=== PATIENT | female | born 1950 | race Caucasian/White ===

== ENCOUNTER 2024-03-20 09:53 | Inpatient (IN) | payer OTHER ==
[2024-03-20 11:36] LABS: BASO % 0.6 % (0-2.0); EOS % 1.4 % (0-4.5); HEMATOCRIT 38.7 % (32.4-45.2); LYMPH % 23.1 % (8-40); MCH 27.6 pg (25.7-33.7); MCHC 33.7 g/dl (32.0-36.0); MEAN CELL VOLUME 81.8 fl (80-96); MEAN PLT VOLUME 8.9 fl (7.5-11.1); MONO % 7.3 % (3.8-10.2); NEUT % 67.6 % (42.8-82.8); PLATELET COUNT 300 10^3/uL (134-434); RBC 4.73 M/mm3 (3.60-5.2); RDW 14.6 % (11.6-15.6); WHITE BLOOD COUNT 9.2 K/mm3 (4.0-10.0)
[2024-03-20 11:42] LABS: INR 1.14 (0.83-1.09); PROTHROMBIN TIME (PATIENT) 12.8 SEC (9.7-13.0)
[2024-03-20 11:45] LABS: ACTIVATED PTT 33.4 SECONDS (25.2-36.5)
[2024-03-20 12:00] LABS: POTASSIUM 4.3 mmol/L (3.5-5.1)
[2024-03-20 12:04] LABS: ALBUMIN 3.5 g/dl (3.4-5.0); BLOOD UREA NITROGEN 10.3 mg/dL (7-18)
[2024-03-20 12:07] LABS: CREATININE 0.8 mg/dL (0.55-1.3); PHOSPHOROUS 2.6 mg/dL (2.5-4.9)
[2024-03-20 12:08] LABS: BILIRUBIN,TOTAL 0.2 mg/dL (0.2-1); TOT PROT 7.2 g/dl (6.4-8.2)
[2024-03-20] MEDS ORDERED: KETOROLAC TROMETHAMINE 15 MG/ML VIAL IVPUSH PRN (12:23)
[2024-03-20] MEDS: CLINDAMYCIN 600MG PREMIX IVPB 600 MG/50 ML BAG IVPB ONE (12:25)
[2024-03-20] MEDS ORDERED: ACETAMINOPHEN INJECTION 100 ML IVPB ONE (12:28)
[2024-03-20] MEDS: ACETAMINOPHEN 1000 MG/100 ML BAG IVPB ONE (12:55)
[2024-03-20] MEDS ORDERED: LIDOCAINE HCL 1%, 10 MG/ML (20ML VIAL) ONE (14:50)
[2024-03-20] MEDS ORDERED: BUPIVACAINE HCL/PF 0.5% (5MG/ML) 10 ML VIAL ONE (14:51)
[2024-03-20] MEDS ORDERED: ONDANSETRON 4 MG/2 ML VIAL IVPUSH PRN ×2 (15:51→16:55)
[2024-03-20] MEDS ORDERED: FENTANYL CITRATE/PF 50 MCG/ML VIAL ONE (16:38)
[2024-03-20] MEDS ORDERED: KETOROLAC TROMETHAMINE 30 MG/1 ML VIAL ONE (16:58)
[2024-03-20] MEDS: KETOROLAC TROMETHAMINE 15 MG/ML VIAL IVPUSH PRN (17:03)
[2024-03-20] MEDS: LACTATED RINGERS SOLUTION 1,000 ML IV SCH ×2 (17:40→18:08)
[2024-03-20] MEDS ORDERED: CLINDAMYCIN 600MG PREMIX IVPB 600 MG/50 ML BAG IVPB SCH (18:00)
[2024-03-20] MEDS: CLINDAMYCIN 600MG PREMIX IVPB 600 MG/50 ML BAG IVPB SCH (18:08)
[2024-03-20 18:11] VITALS: BMI 31.6
[2024-03-20] MEDS: ACETAMINOPHEN 325 MG TABLET (FP) PO PRN (20:59)
[2024-03-20] MEDS: FAMOTIDINE 40 MG TABLET PO SCH (21:19)
[2024-03-20] MEDS: ATORVASTATIN CA 40 MG TABLET (FP) PO SCH (21:19)
[2024-03-20] MEDS ORDERED: ATORVASTATIN CA 40 MG TABLET (FP) PO SCH (22:00)
[2024-03-21 08:38] LABS: HEMATOCRIT 35.6 % (32.4-45.2); HEMOGLOBIN 12.1 GM/dL (10.7-15.3); MCH 27.8 pg (25.7-33.7); MEAN CELL VOLUME 81.9 fl (80-96); MEAN PLT VOLUME 9.2 fl (7.5-11.1); PLATELET COUNT 271 10^3/uL (134-434); RBC 4.35 M/mm3 (3.60-5.2); WHITE BLOOD COUNT 7.7 K/mm3 (4.0-10.0)
[2024-03-21 08:40] LABS: POTASSIUM 4.5 mmol/L (3.5-5.1)
[2024-03-21 08:44] LABS: CALCIUM 9.3 mg/dL (8.5-10.1)
[2024-03-21 08:45] LABS: BLOOD UREA NITROGEN 13.4 mg/dL (7-18)
[2024-03-21 08:48] LABS: CREATININE 0.7 mg/dL (0.55-1.3)
[2024-03-21] MEDS: ENALAPRIL MALEATE 10 MG TABLET PO SCH (09:49)
[2024-03-21] MEDS: LACTOBACILLUS ACIDOPHILUS 1 TABLET PO SCH (09:49)
[2024-03-21] MEDS ORDERED: LACTOBACILLUS ACIDOPHILUS 1 TABLET PO SCH (10:00)
[2024-03-21] MEDS ORDERED: ENALAPRIL MALEATE 10 MG TABLET PO SCH (10:00)
[2024-03-21] MEDS ORDERED: FAMOTIDINE 40 MG TABLET PO SCH ×2 (10:00)
[2024-03-21 18:17] VITALS: RESP 18
[2024-03-21] MEDS: ACETAMINOPHEN 325 MG TABLET (FP) PO PRN (23:33)
[2024-03-22 03:31] VITALS: TEMP 97.9
[2024-03-22 07:01] VITALS: BP 117/69; PULSE 77
[2024-03-22] MEDS: FAMOTIDINE 40 MG TABLET PO SCH (10:35)
== END 2024-03-22 14:55 | disposition home or self-care (01) | DRG 572 ==
LOC: JER 09:53 → JERBED 11:26 → J5S 13:08 → OBSVTOIN 15:17
PROVIDERS: ADMIT Internal Medicine
PROC: 0JBF0ZZ Excision of Left Upper Arm Subcutaneous Tissue and Fascia, Open Approach (ICD-10-PCS; 2024-03-20)
PROC: 0J9F0ZZ Drainage of Left Upper Arm Subcutaneous Tissue and Fascia, Open Approach (ICD-10-PCS; principal; 2024-03-20 15:00)
DX: L02.414 Cutaneous abscess of left upper limb (principal); L72.3 Sebaceous cyst; I10 Essential (primary) hypertension; E11.9 Type 2 diabetes mellitus without complications; K21.9 Gastro-esophageal reflux disease without esophagitis; E66.9 Obesity, unspecified; Z68.31 Body mass index [BMI] 31.0-31.9, adult; B96.89 Other specified bacterial agents as the cause of diseases classified elsewhere
CPT/HCPCS: 36415; 80048; 80053; 82962; 83735; 84100; 85025; 85027; 85610; 85730; 86850; 86900; 86901; 87070; 87076; 87205; 88304-TC; 93005; 93010; 94760; 99285-25; G0378; J0131

== ENCOUNTER 2024-07-26 04:02 | Day surgery (SDC) | payer OTHER ==
[2024-07-24 09:39] VITALS: BMI 30.4
[2024-07-26] MEDS ORDERED: PROPOFOL 20 ML ONE (07:23)
[2024-07-26] MEDS ORDERED: MIDAZOLAM HCL 2 MG/2 ML SINGLE DOSE VIAL ONE (07:23)
[2024-07-26] MEDS ORDERED: VASopressin 20 UNITS/ML VIAL IV ONE ×4 (07:40→07:42)
[2024-07-26] MEDS: ceFAZolin SODIUM 1 GM VIAL IVPB ONE (08:55)
[2024-07-26] MEDS ORDERED: DEXAMETHASONE SOD PHOSPHATE 4 MG/1 ML VIAL ONE (09:03)
[2024-07-26] MEDS ORDERED: ONDANSETRON 4 MG/2 ML VIAL ONE (09:03)
[2024-07-26] MEDS ORDERED: ceFAZolin SODIUM 1 GM VIAL ONE (09:03)
[2024-07-26] MEDS ORDERED: ROCURONIUM BROMIDE 50 MG/5 ML SYRINGE ONE (09:22)
[2024-07-26] MEDS ORDERED: ONDANSETRON 4 MG/2 ML VIAL IVPUSH PRN (10:03)
[2024-07-26] MEDS ORDERED: LACTATED RINGERS SOLUTION 1,000 ML IV SCH (10:15)
[2024-07-26] MEDS ORDERED: ACETAMINOPHEN INJECTION 100 ML ONE (10:17)
[2024-07-26] MEDS: DEXTROSE 5%-0.45% SALINE 1,000 ML IV SCH (14:30)
[2024-07-26] MEDS: oxyCODONE HCL 5 MG TABLET PO PRN (18:42)
[2024-07-26] MEDS: CEFAZOLIN 1 GM in DEXTROSE 5%-WATER - 50 ML IVPB SCH (18:42)
[2024-07-26 22:18] VITALS: RESP 18
[2024-07-27 09:13] LABS: BASO % 0.2 % (0-2.0); EOS % 0.4 % (0-4.5); HEMATOCRIT 35.5 % (32.4-45.2); HEMOGLOBIN 11.6 GM/dL (10.7-15.3); LYMPH % 23.1 % (8-40); MCH 26.6 pg (25.7-33.7); MCHC 32.8 g/dl (32.0-36.0); MEAN CELL VOLUME 81.1 fl (80-96); MEAN PLT VOLUME 10.2 fl (7.5-11.1); MONO % 5.9 % (3.8-10.2); NEUT % 70.4 % (42.8-82.8); PLATELET COUNT 249 10^3/uL (134-434); RBC 4.38 M/mm3 (3.60-5.2); RDW 15.1 % (11.6-15.6); WHITE BLOOD COUNT 12.2 K/mm3 (4.0-10.0)
[2024-07-27 09:28] LABS: POTASSIUM 4.2 mmol/L (3.5-5.1)
[2024-07-27 09:30] LABS: BLOOD UREA NITROGEN 8.8 mg/dL (7-18); CALCIUM 9.5 mg/dL (8.5-10.1)
[2024-07-27 09:34] LABS: CREATININE 0.7 mg/dL (0.55-1.3)
[2024-07-27 11:39] VITALS: BP 115/60; PULSE 73; TEMP 98.1
== END 2024-07-27 13:06 | disposition home or self-care (01) ==
LOC: JASUSAT 04:02 → JASU-SURG 04:02 → J7W 14:35 → JASUSAT 07-27 13:06
PROVIDERS: ATTEND Urology
PROC: 0TSD0ZZ Reposition Urethra, Open Approach (ICD-10-PCS; 2024-07-26)
PROC: 0JQC3ZZ Repair Pelvic Region Subcutaneous Tissue and Fascia, Percutaneous Approach (ICD-10-PCS; principal; 2024-07-26 07:30)
DX: N39.3 Stress incontinence (female) (male) (principal); N81.10 Cystocele, unspecified; E11.9 Type 2 diabetes mellitus without complications; I10 Essential (primary) hypertension; K21.9 Gastro-esophageal reflux disease without esophagitis; J45.20 Mild intermittent asthma, uncomplicated
CPT/HCPCS: 36415; 80048; 85025; 88302-TC; 94760; C1771; J0131

== ENCOUNTER 2024-12-22 01:38 | Emergency (ER) | payer OTHER ==
[2024-12-22 01:48] VITALS: BP 148/72; PULSE 92; RESP 20; TEMP 98.4; BMI 32.7
[2024-12-22] MEDS ORDERED: FAMOTIDINE 20 MG/50 ML IVPB 20 MG/50 ML MG IVPB ONE (02:16)
[2024-12-22] MEDS ORDERED: MAG HYDROX/AL HYDROX/SIMETH 30 ML UNIT-DOSE CUP ONE (02:16)
[2024-12-22] MEDS: MAG HYDROX/AL HYDROX/SIMETH 30 ML UNIT-DOSE CUP PO ONE (02:28)
[2024-12-22] MEDS: FAMOTIDINE 20 MG/50 ML IVPB 20 MG/50 ML MG IVPB ONE (02:28)
[2024-12-22 02:48] LABS: BASO % 0.4 % (0-2.0); EOS % 2.6 % (0-4.5); HEMATOCRIT 38.6 % (32.4-45.2); HEMOGLOBIN 12.7 GM/dL (10.7-15.3); LYMPH % 34.7 % (8-40); MCH 26.6 pg (25.7-33.7); MCHC 32.9 g/dl (32.0-36.0); MEAN PLT VOLUME 10.1 fl (7.5-11.1); MONO % 7.3 % (3.8-10.2); PLATELET COUNT 230 10^3/uL (134-434); RBC 4.77 M/mm3 (3.60-5.2); RDW 15.1 % (11.6-15.6); WHITE BLOOD COUNT 7.7 K/mm3 (4.0-10.0)
[2024-12-22 03:07] LABS: POTASSIUM 3.7 mmol/L (3.5-5.1)
[2024-12-22 03:09] LABS: ALBUMIN 3.6 g/dl (3.4-5.0); CALCIUM 9.6 mg/dL (8.5-10.1)
[2024-12-22 03:13] LABS: CREATININE 0.8 mg/dL (0.55-1.3)
[2024-12-22 03:14] LABS: BILIRUBIN,TOTAL 0.3 mg/dL (0.2-1); TOT PROT 6.8 g/dl (6.4-8.2)
== END 2024-12-22 03:41 | disposition home or self-care (01) ==
LOC: JER 01:38
PROC: 3E033GC Introduction of Other Therapeutic Substance into Peripheral Vein, Percutaneous Approach (ICD-10-PCS; principal; 2024-12-22)
DX: K29.70 Gastritis, unspecified, without bleeding (principal); R10.13 Epigastric pain
CPT/HCPCS: 36415; 71045-TC-FY; 80053; 83690; 84484; 85025; 93005; 93010; 96365; 99285-25

== ENCOUNTER 2025-06-04 12:45 | Emergency (ER) | payer OTHER ==
[2025-06-04 13:05] VITALS: BP 137/65; PULSE 71; RESP 20; TEMP 98.1; BMI 31.8
[2025-06-04 14:31] LABS: ABSOLUTE IMMATURE GRANULOCYTES 0.02 x10^3/uL (0.0-0.031); BASOPHILS # 0.02 x10^3/uL (0.01-0.08); EOSINOPHIL % 1.6 % (0.7-5.8); EOSINOPHILS # 0.12 x10^3/uL (0.04-0.36); MCHC 31.2 g/dl (32.2-35.5); MEAN CELL VOLUME 84.5 fl (79.4-94.8); MEAN PLT VOLUME 12.8 fl (9.4-12.3); MONOCYTE # 0.42 x10^3/uL (0.24-0.86); MONOCYTE % 5.5 % (4.7-12.5); RDW 14.6 % (12.4-16.6)
[2025-06-04 14:41] LABS: INR 1.16 (0.83-1.09); PROTHROMBIN TIME (PATIENT) 12.8 SEC (9.7-13.0)
[2025-06-04 14:44] LABS: ACTIVATED PTT 32.3 SECONDS (25.2-36.5)
[2025-06-04 14:54] LABS: CO2 29.0 mmol/L (21-32); GLUCOSE,RANDOM 101.0 mg/dL (74-106)
[2025-06-04 14:57] LABS: CREATININE 0.6 mg/dL (0.55-1.3); SGOT/AST 17.0 U/L (15-37); SGPT/ALT 25.0 U/L (13-61)
[2025-06-04 14:58] LABS: TOT PROT 6.4 g/dl (6.4-8.2)
[2025-06-04 14:59] LABS: ALK PHOS 97.0 U/L (45-117)
[2025-06-04 16:23] LABS: EPI CELLS 32 /uL (0-25.1); HYALINE CASTS 2 /uL (0-3.1); URINE APPEARANCE CLOUDY; URINE BACTERIA 1150 /uL (0-1359); URINE BILIRUBIN NEGATIVE (NEGATIVE); URINE COLOR YELLOW; URINE GLUCOSE (UA) NEGATIVE (NEGATIVE); URINE KETONE NEGATIVE (NEGATIVE); URINE LEUK ESTERASE 2+ (NEGATIVE); URINE NITRITE NEGATIVE (NEGATIVE); URINE PROTEIN NEGATIVE (NEGATIVE); URINE RBC 18 /uL (0-23.9); URINE UROBILINOGEN 0.2 mg/dL (0.2-1.0); URINE WBC 212 /uL (0-25.8)
[2025-06-04] MEDS: CEFTRIAXONE 1 GM in DEXTROSE 5%-WATER - 100 ML IVPB ONE (16:52)
[2025-06-04] MEDS ORDERED: NITROFURANTOIN MACROCRYSTAL 50 MG CAPSULE (FP) ONE (16:54)
[2025-06-04] MEDS: NITROFURANTOIN MACROCRYSTAL 50 MG CAPSULE (FP) PO ONE (16:59)
[2025-06-04 19:33] LABS: HCV DIAGNOSTIC IN-HOUSE W/RFLX NON-REACTIVE (NONREACTIVE)
[2025-06-04 19:38] LABS: HIV INTERPRETATION NEGATIVE (NEGATIVE)
[2025-06-04 22:16] LABS: URINE CRYSTALS SEEN /hpf
== END 2025-06-04 17:05 | disposition home or self-care (01) ==
LOC: JER 12:45
DX: R19.7 Diarrhea, unspecified (principal); N39.0 Urinary tract infection, site not specified
CPT/HCPCS: 36415; 80053; 81003; 83690; 83735; 85025; 85610; 85730; 86803; 87086; 87389; 93005; 93010; 99284-25